=== PATIENT | female | born 1980 | race Caucasian/White ===

== ENCOUNTER 2023-12-18 13:09 | Outpatient (CLI) | payer OTHER | END 2023-12-18 13:10 | disposition home or self-care (01) | LOC: CSHMAMMO 13:09 | PROVIDERS: ATTEND Nurse Practitioner Family | DX: Z12.31 Encounter for screening mammogram for malignant neoplasm of breast (principal); N63.15 Unspecified lump in the right breast, overlapping quadrants | CPT/HCPCS: 77063; 77067 ==

== ENCOUNTER 2023-12-29 13:06 | Outpatient (CLI) | payer OTHER | END 2023-12-29 13:07 | disposition home or self-care (01) | LOC: CSHMAMMO 13:06 | PROVIDERS: ATTEND Nurse Practitioner Family | DX: N63.10 Unspecified lump in the right breast, unspecified quadrant (principal); N64.9 Disorder of breast, unspecified | CPT/HCPCS: G0279 ==

== ENCOUNTER → 2024-01-09 | Day surgery (SDC) | payer OTHER | LOC: CSHULT 12:23 | PROVIDERS: ATTEND Nurse Practitioner Family | PROC: 0HBT3ZX Excision of Right Breast, Percutaneous Approach, Diagnostic (ICD-10-PCS; principal; 2024-01-09) | DX: N63.12 Unspecified lump in the right breast, upper inner quadrant (principal) | CPT/HCPCS: 19083; 88305 ==

== ENCOUNTER 2025-01-10 12:59 | Outpatient (CLI) | payer OTHER | END 2025-01-10 13:00 | disposition home or self-care (01) | LOC: CSHMAMMO 12:59 | PROVIDERS: ATTEND Nurse Practitioner Family | DX: Z12.31 Encounter for screening mammogram for malignant neoplasm of breast (principal); N63.10 Unspecified lump in the right breast, unspecified quadrant; Z91.89 Other specified personal risk factors, not elsewhere classified | CPT/HCPCS: 77063; 77067 ==

== ENCOUNTER 2025-01-17 13:59 | Outpatient (CLI) | payer OTHER | END 2025-01-17 14:00 | disposition home or self-care (01) | LOC: CSHULT 13:59 | PROVIDERS: ATTEND Nurse Practitioner Family | DX: N63.25 Unspecified lump in the left breast, overlapping quadrants (principal); N63.10 Unspecified lump in the right breast, unspecified quadrant ==